=== PATIENT | male | born 1985 | race African-American/Black ===

== ENCOUNTER 2025-04-22 02:48 | Emergency (ER) | payer MEDICAID ==
[~2025-04-22] VITALS: Ht 177.8 cm; Wt 82.0 kg
[2025-04-22 02:57] VITALS: O2SAT 99
[2025-04-22] MEDS ORDERED: AMOX1TAB16 MT (02:58)
[2025-04-22] MEDS ORDERED: IBUP-2029 MT (02:58)
[2025-04-22] MEDS: AMOXICILLIN/POTASSIUM CLAVULANATE 875/125MG TAB PO ONE (03:46)
[2025-04-22] MEDS: IBUPROFEN 600MG TABLET PO ONE (03:46)
[2025-04-22 04:36] VITALS: BP 124/86; PULSE 106; RESP 17; TEMP 36.8; O2SAT 99
== END 2025-04-22 05:25 | disposition home or self-care (01) ==
LOC: ER 02:48
DX: S61.452A Open bite of left hand, initial encounter (principal); Y04.1XXA Assault by human bite, initial encounter; Y93.89 Activity, other specified; Y92.89 Other specified places as the place of occurrence of the external cause; Y99.8 Other external cause status
CPT/HCPCS: 73130; 99283